=== PATIENT | male | born 1965 | race Caucasian/White ===

== ENCOUNTER 2020-01-03 09:42 | Emergency (ER) | payer MEDICAID, OTHER ==
[~2020-01-03] VITALS: Ht 165.1 cm; Wt 81.6 kg
--- NOTE | 2020-01-03 10:16 | NUR ---
PT IS IN ROOM #2B. DR NAVARRETE EVALUATED THE PT.
--- NOTE | 2020-01-03 10:35 | NUR ---
PT WAS D/C'd TO HOME. D/C INSTRUCTIONS GIVEN TO THE PT BY DR NVAARRETE.
[2020-01-03 10:37] VITALS: BP 142/73
== END 2020-01-03 10:38 | disposition home or self-care (01) ==
LOC: ER 09:42
DX: M25.511 Pain in right shoulder (principal); Z91.81 History of falling; E11.9 Type 2 diabetes mellitus without complications; M19.011 Primary osteoarthritis, right shoulder
CPT/HCPCS: 73030; A4663

== ENCOUNTER 2020-12-09 11:10 | Emergency (ER) | payer OTHER ==
[~2020-12-09] VITALS: Ht 165.1 cm; Wt 77.1 kg
--- NOTE | 2020-12-09 11:30 | NUR ---
at bedside for assessment
--- NOTE | 2020-12-09 11:45 | NUR ---
Radiology noted at bedside for x-ray of right lower extremity
[2020-12-09] MEDS ORDERED: DICL100G26 TP (11:49)
--- NOTE | 2020-12-09 12:12 | NUR ---
Patient discharged to home in stable condition.instucted to follow up with PCP and or ortho specialists if pain persists. no signs of acute distress noted, took all belongings. Written and verbal after care instructions given. Patient verbalizes understanding of instructions. Stressed follow up or return to ER for worsening s/s.
[2020-12-09 12:13] VITALS: BP 160/80
== END 2020-12-09 12:12 | disposition home or self-care (01) ==
LOC: ER 11:10
DX: M25.571 Pain in right ankle and joints of right foot (principal); E11.9 Type 2 diabetes mellitus without complications
CPT/HCPCS: 73610; A4663